=== PATIENT | female | born 1975 | race Caucasian/White ===

== ENCOUNTER 2022-10-19 19:37 | Emergency (ER) | payer MEDICARE, OTHER, SELFPAY ==
[2022-10-19 19:56] VITALS: BP 128/85; PULSE 88; RESP 14; TEMP 36.6; O2SAT 99; BMI 36.8
[2022-10-19 20:48] VITALS: PULSE 71
[2022-10-19 20:54] VITALS: PULSE 71; RESP 18; O2SAT 97
--- NOTE | 2022-10-19 20:59 | ED_ITS ---
HPI - Extremity Problem General: Chief complaint: Extremity Injury, Upper Stated complaint: Left Hand Injury Time Seen by Provider: 10/19/22 20:38 History of Present Illness: 46-year-old female presents emergency room with left index finger laceration. Patient further reveals that she was using a knife to cut soap when she accidentally cut her finger. She described the pain around the laceration as throbbing sensation with severity of 7 out of 10. Patient is not sure about tet anus status but declined tetanus at this point for medical conditions. Patient has any numbness or tingling at the finger. Review of Systems General: Reports: 10 or more systems reviewed and unremarkable except in HPI and below Skin/Breast: Reports: other (Left index finger laceration); Denies: erythema, skin swelling, new lesions, changing lesions, non-healing lesions, lesions or jaundice Physical Exam Const: COMMON NORMALS: no acute distress, average body habitus, patient oriented x3, no limitations, healthy appearing, alert and well nourished Neck/C-Spine: COMMON NORMALS: no JVD Chest: COMMONS NORMALS: normal inspection of the chest, normal palpation of entire chest wall, normal inspection of the breasts and normal palpation of the breasts Breast/axilla inspection: Yes normal inspection of the breasts BREAST/AXILLA PALPATION: Yes normal palpation of the breasts Cardio: COMMON NORMALS: no JVD, regular rate, regular rhythm, S1 normal heart sound present, S2 normal heart sound present, No gallops present (Cardio), No clicks present (Cardio), No murmurs present (Cardio), No rub (Cardio) and Peripheral pulses 2+ throughout RATE: regular rate RHYTHM: regular rhythm HEART SOUNDS: S1 normal heart sound present and S2 normal heart sound present PERIPHERAL PULSES: Peripheral pulses 2+ throughout Extremity: LEFT UPPER EXTREMITY: Yes hand & digits Left hand and digits: Yes inspection (2 cm laceration), Yes palpation, Yes ROM, Yes neurovascular exam (Intact) and Yes tendon exam (Intact tendon) Neuro: COMMON NORMALS: patient oriented x3 SENSORIUM/ORIENTATION: Yes alert Procedures Laceration Laceration 1: Site: upper extremity (Left index finger plantar aspect) Side (If applicable): left Description: linear Depth: simple, single layer Local Anesthetic: lidocaine 2% Amount of anesthesia used (mL): 4 Skin layer closed with: nylon Size (cm): 5-0 Number of sutures: 3 Technique: simple, interrupted Course Vital Signs: Vital signs: Vital Signs Temperature 97.9 F 10/19/22 19:56 Pulse Rate 71 10/19/22 20:54 Respiratory Rate 18 10/19/22 20:54 Blood Pressure 128/85 10/19/22 19:56 Pulse Oximetry 97 10/19/22 20:54 Oxygen Delivery Me thod Room Air 10/19/22 20:54 MDM - Extremity (Nontraumatic) Medical Decision Making Patient was made by the emergency room. Finger was prepped with Betadine. Which is well applied after performing digital block. Wound care discussed with patient at length. Need for wound recheck in 2 to 3 days recommended and suture removal in 7 to 8 days. Differential Diagnosis Likely lower extremity edema (Laceration, cellulitis, abscess, abrasion, avulsion,) Discharge Plan Discharge Patient Disposition: Home Clinical Impression: Finger laceration Condition: Stable Prescriptions: New cephalexin 500 mg capsule 500 mg PO BID 10 Days Qty: 20 0RF Discharge Orders: Discharge ED (Routine); Ordered 10/19/22 Ordered By: Otto Mcghee Patient Instructions: Opioid Safety, Pain Management Coding Level of Care Code ED Hospital Insurance Clerk for Agustin Zapata
[2022-10-19] MEDS: lidocaine 2% INJ 20 mL INJECTION (21:08)
[2022-10-19 21:40] VITALS: PULSE 78; RESP 16; O2SAT 97
--- NOTE | 2022-10-29 13:28 | DCPLANNER ---
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
== END 2022-10-19 21:42 | disposition home or self-care (01) ==
PROVIDERS: Emergency Provider Family Medicine
DX: S61.211A Laceration without foreign body of left index finger without damage to nail, initial encounter (principal); W26.0XXA Contact with knife, initial encounter
CPT/HCPCS: 12001; 99283